=== PATIENT | female | born 1950 | race Caucasian/White ===

== ENCOUNTER 2021-01-02 20:13 | Emergency (ER) | payer OTHER, MEDICARE ==
[2021-01-02 20:42] VITALS: BP 114/60; PULSE 65; TEMP 98.2; BMI 20.5
[2021-01-02] MEDS ORDERED: DIPHTH,PERTUSS(ACELL),TET 0.5 ML DISP.SYRIN IM ONE ×2 (22:16→22:21)
== END 2021-01-02 22:31 | disposition home or self-care (01) ==
LOC: FER 20:13
PROC: 3E0234Z Introduction of Serum, Toxoid and Vaccine into Muscle, Percutaneous Approach (ICD-10-PCS; principal; 2021-01-02)
DX: S00.83XA Contusion of other part of head, initial encounter (principal); S63.501A Unspecified sprain of right wrist, initial encounter; S63.502A Unspecified sprain of left wrist, initial encounter
CPT/HCPCS: 70110-TC-FY; 90471; 90715; 99284-25